=== PATIENT | female | born 1960 | race Hispanic/Latino ===

== ENCOUNTER 2017-08-18 08:39 | Emergency (ER) | payer OTHER ==
[~2017-08-18 08:39] MED LIST: MAGNESIUM100 MG PO; VITAMIN B-12100 MC1 PO; VITAMIN B-6100 M1 PO; VITAMIN D250000 UNIT PO
[2017-08-18 08:46] VITALS: BP 147/76
--- NOTE | 2017-08-18 09:18 | RADIOLOGY REPORT ---
EXAMINATION: XR WRIST, LEFT CLINICAL INFORMATION: Left wrist pain after fall COMPARISON: None TECHNIQUE: Four views of the left wrist. FINDINGS: No acute fracture or dislocation is seen. Normal alignment. No joint space narrowing. There is a well-defined 7 mm cyst in the lunate. Mild soft tissue swelling is seen adjacent to the distal ulna and radial styloid. IMPRESSION: Mild soft tissue swelling. No acute fracture or dislocation. Chronic appearing cyst in the lunate.
[2017-08-18] MEDS ORDERED: IBUPROFEN800 M1 PO (09:36)
[2017-08-18] MEDS ORDERED: ROBAXIN-750750 M1 PO (09:36)
--- NOTE | 2017-08-18 09:37 | ED HAND/WRIST INJURY COMPLAINT ---
History of Present Illness General Chief Complaint: Fall Stated Complaint: L WRIST INJURY S/P FALL Source: patient Exam Limitations: no limitations Vital Signs & Intake/Output Vital Signs & Intake/Output Vital Signs Date Time Temp Pulse Resp B/P B/P Pulse O2 O2 Flow FiO2 Mean Ox Delivery Rate 08/18 0849 96.0 08/18 0846 96.0 77 16 147/76 96 Room Air Allergies Coded Allergies: nitrofurantoin (From MACROBID) (Severe, SOB 11/12/15) Reconcile Medications Cyanocobalamin (Vitamin B-12) (Vitamin B-12) 100 MCG TABLET 1 TAB PO DAILY SUPPLEMENT (Reported) Ergocalciferol (Vitamin D2) (Vitamin D2) 50,000 UNIT CAPSULE 1 CAP PO Q2W SUPPLEMENT (Reported) Ibuprofen 800 MG TABLET 1 TAB PO TID PRN pain Magnesium Amino Acid Chelate (Magnesium) (Unknown Strength) TABLET (Unknown Dose) PO DAILY SUPPLEMENT (Reported) Methocarbamol (Robaxin-750) 750 MG TABLET 1 TAB PO TID PRN pain Pyridoxine HCl (Vitamin B-6) 100 MG TABLET 1 TAB PO DAILY SUPPLEMENT ( Reported) Triage Note: PT TO ED C/O LT WRIST PAIN S/P FALL THIS AM. +CMS, ABLE TO MOVE WRIST. Triage Nurses Notes Reviewed? yes Occurred: just prior to arrival Duration: hour(s): (2), better, continues in ED Timing: single episode today Injury Environment: home Severity: mild, moderate Severity Numbers: 7 Pain/Injury Location: Left: Wrist. Context: fall Method of Injury: fall No Modifying Factors: none Associated Symptoms: swelling LMP (ages 10-50): unknown : No Patient currently breastfeeds: No HPI: 57-year-old female with no past medical history presents for evaluation after a fall. Patient states that about 2 hours before presentation she tripped falling on her left outstretched hand. She did not hit her head or lose consciousness. She was able to get up on her own. She reports pain located diffusely in her wrist. The pain is worse with movement. The pain radiates into her forearm. No numbness or tingling no elbow pain or shoulder pain. No neck pain or back pain chest pain or shortness of breath. She is not taking any medicine but did receive Motrin in triage and feels she is getting better. No blood thinners. (Enmanuel Dsouza) Past History Travel History Traveled to [place] past 21 day No Medical History Any Pertinent Medical History? see below for history Neurological: NONE EENT: NONE Cardiovascular: NONE Respiratory: NONE Gastrointestinal: NONE Hepatic: NONE Renal: NONE Musculoskeletal: NONE Psychiatric: NONE Endocrine: NONE Blood Disorders: NONE Cancer(s): NONE MOTION PICTURE PHOTOGRAPHER/Reproductive: NONE Surgical History Surgical History: non-contributory Psychosocial History What is your primary language [place] Tobacco Use: Never used Family History Hx Contributory? No (Enmanuel Dsouza) Review of Systems Review of Systems Constitutional: Reports: no symptoms. EENTM: Reports: no symptoms. Respiratory: Reports: no symptoms. Cardiovascular: Reports: no symptoms. GI: Reports: no symptoms. Genitourinary: Reports: no symptoms. Musculoskeletal: Reports: see HPI, joint pain, joint swelling, muscle pain. Skin: Reports: no symptoms. Neurological/Psychological: Reports: no symptoms. Hematologic/Endocrine: Reports: no symptoms. Immunologic/Allergic: Reports: no symptoms. All Other Systems: Reviewed and Negative (Enmanuel Dsouza) Physical Exam Physical Exam General Appearance: well developed/nourished, no apparent distress, alert, awake Head: atraumatic, normal appearance Eyes: Bilateral: normal appearance, PERRL, EOMI. Ears, Nose, Throat: hearing grossly normal Neck: normal inspection, supple, full range of motion, no midline tenderness Cardiovascular/Respiratory: normal breath sounds, normal peripheral pulses, regular rate/rhythm, no respiratory distress Back: normal inspection, normal range of motion, no vertebral tenderness Shoulder Left: normal range of motion, normal inspection Shoulder Right: normal range of motion, normal inspection Elbow Left: normal range of motion, normal inspection Elbow Right: normal range of motion, normal inspection Forearm Left: normal range of motion, normal inspection Forearm Right: normal range of motion, normal inspection Wrist Left: normal range of motion, swelling (MILD DIFFUSE ), THE LEFT WRIST IS MILDLY SWOLLEN. tHERE IS TENDER TO PALPATION OVER THE ULNAR AND RADIAL ASPECT OF THE WRIST. fULL RANGE OF MOTION OF THE WRIST IS INTACT. nO SNUFFBOX TENDERNESS. oral surgeon STRENGTH 5 OUT OF 5. fULL RANGE OF MOTION OF THE ELBOW AND SHOULDER. nEUROVASCULAR SUPPLY INTACT Wrist Right: normal range of motion, normal inspection Hand Left: normal inspection, normal range of motion Hand Right: normal inspection, normal range of motion Neurologic/Tendon: normal sensation, normal motor functions, normal tendon functions, responds to pain, no evidence tendon injury, no pulse deficit Skin: intact, normal color, warm/dry Lymphatic: no anterior cervical la (Enmanuel Dsouza) Progress Differential Diagnosis: abscess, cellulitis, contusion, dislocation, fracture, sprain Plan of Care: Patient seen and evaluated. The wrist is mildly swollen with bilateral tenderness. No snuffbox 100s. No gross deformity or bruising. Full range of motion is intact neurovascular supply is intact. X-rays negative for any acute fracture or subluxation. Patient was instructed to rest ice elevation compression. Oscar wrap applied. Prescriptions given for IV Profen Robaxin. Follow-up with primary care. Discussed return precautions patient appears currently well agrees the plan. Diagnostic Imaging: Viewed by Me: Radiology Read. Discussed w/RAD: Radiology Read. Radiology Impression: PATIENT: CRISTOBAL WASHBURN PRESENT AGE: 57 PATIENT ACCOUNT NO: [id number] : 62 LOCATION: [facility] ORDERING PHYSICIAN: Enmanuel FOX SERVICE DATE: 08/18/17 EXAM TYPE: RAD - XRY- WRIST COMPLETE-LEFT EXAMINATION: XR WRIST, LEFT CLINICAL INFORMATION: Left wrist pain after fall COMPARISON: None TECHNIQUE: Four views of the left wrist. FINDINGS: No acute fracture or dislocation is seen. Normal alignment. No joint space narrowing. There is a well-defined 7 mm cyst in the lunate. Mild soft tissue swelling is seen adjacent to the distal ulna and radial styloid. IMPRESSION: Mild soft tissue swelling. No acute fracture or dislocation. Chronic appearing cyst in the lunate. DICTATED BY: Jean Alfaro MD DATE/TIME DICTATED: 08/18/17912 SURGERY TECH:AYE DATE/TIME TRANSCRIBED:08/18/17912 CONFIDENTIAL, DO NOT COPY WITHOUT APPROPRIATE AUTHORIZATION. (Enmanuel Dsouza) Departure Departure Disposition: HOME OR SELF CARE Condition: Stable Clinical Impression Primary Impression: Left wrist sprain Qualifiers: Encounter type: initial encounter Qualified Code: S63.502A - Unspecified sprain of left wrist, initial encounter Referrals: Gonzalo FRIAS,Sergio Hernandez (PCP/Family) Additional Instructions: Rest, avoid excessive physical activity and lifting or bending. Apply ice for 15-20 minutes every few hours. Keep the wrist elevated. Ibuprofen 800 mg every 8 hours with food as needed for pain. Robaxin as a muscle relaxer that can also use every 8 hours as needed this may cause drowsiness. Make a follow-up appointment with her primary care doctor for this coming week. Monitor symptoms and return with any concerns. Departure Forms: Customer Survey General Discharge Information Prescriptions: Current Visit Scripts Ibuprofen 1 TAB PO TID PRN pain #30 TAB Methocarbamol (Robaxin-750) 1 TAB PO TID PRN pain #30 TAB (Enmanuel Dsouza) PA/RADIOLOGICAL HEALTH SPECIALIST Co-Sign Statement Statement: ED Attending supervision documentation- [] I saw and evaluated the patient. I have also reviewed all the pertinent lab results and diagnostic results. I agree with the findings and the plan of care as documented in the PA's/RADIOLOGICAL HEALTH SPECIALIST's documentation. [X] I have reviewed the ED Record and agree with the PA's/RADIOLOGICAL HEALTH SPECIALIST's documentation. [] Additions or exceptions (if any) to the PAs/RADIOLOGICAL HEALTH SPECIALIST's note and plan are summarized below: [] (Yenifer FRIAS,Ifeoma)
== END 2017-08-18 09:39 ==
LOC: ERH 08:39
DX: S63.502A Unspecified sprain of left wrist, initial encounter (principal); W19.XXXA Unspecified fall, initial encounter; Y92.009 Unspecified place in unspecified non-institutional (private) residence as the place of occurrence of the external cause
CPT/HCPCS: 73110-LT